=== PATIENT | male | born 1990 | race Caucasian/White ===

== ENCOUNTER 2017-04-06 01:21 | Emergency (ER) | payer SELFPAY ==
[~2017-04-06] VITALS: Ht 177.8 cm; Wt 89.0 kg
[~2017-04-06 01:21] MED LIST: AMOX875T PO; IBUP800T23 PO
[2017-04-06 01:24] VITALS: BP 154/81; PULSE 112; RESP 16; TEMP 99; O2SAT 98
--- NOTE | 2017-04-06 01:42 | PD ---
HPI Chief Complaint: Injury Time Seen by Provider: 01:33 Travel History International Travel<30 days: No Contact w/Intl Traveler<30days: No Traveled to known affect area: No History of Present Illness HPI 26-year-old [id number] black male presents emergency Department with complaints of left shoulder pain after being placed in the arm bar by a friend of his when they were playing around. The patient states that he had felt and heard a pop in his left shoulder. Since then he had severe 10 out of 10 pain. Worse with any type of movement. He has had some relief with holding his arm up against his chest. He denies any numbness, tingling or weakness. No injury to his head, neck or back. Denies prior injury. PFSH Past Medical History Asthma: Yes (CHILDHOOD) Diminished Hearing: No Immunizations Current: Yes Tetanus Vaccination: < 5 Years Past Surgical History Surgical History: No Previous Surgery Social History Alcohol Use: Yes (OCCASIONALLY) Tobacco Use: No Substance Use: Yes (marijuana) Allergies-Medications (Allergen,Severity, Reaction): Coded Allergies: pollen extracts (Unverified Allergy, Mild, 04/06/17) Reported Meds & Prescriptions Reported Meds & Active Scripts Active Ibuprofen 800 Mg Tab 800 Mg PO Q8H PRN Lortab (Hydrocodone-Acetaminophen) 5-325 Mg Tab 1 Tab PO Q8HR PRN Review of Systems General / Constitutional: No: Fever Eyes: No: Visual changes HENT: No: Headaches, Neck Pain Cardiovascular: No: Chest Pain or Discomfort Respiratory: No: Shortness of Breath Gastrointestinal: No: Abdominal Pain Genitourinary: No: Dysuria Musculoskeletal: Positive: Arthralgias, Limited ROM, Pain, No: Weakness Skin: No Rash Neurologic: No: Weakness Psychiatric: No: Depression Endocrine: No: Polydipsia Hematologic/Lymphatic: No: Easy Bruising Physical Exam Narrative GENERAL: This is a well-nourished, well-developed patient, in no apparent distress. SKIN: No rashes, ecchymoses or lesions. Warm and dry. HEAD: Atraumatic. Normocephalic. EYES: PERRL, EOMI, no discharge or injection. No scleral icterus. EARS: Clear NOSE: Nasal turbinates appear normal. THROAT: Mucosa pink and moist. Airway patent. NECK: Trachea midline. supple, moves head freely. LUNGS: Clear to auscultation. CV: Regular in rhythm. ABDOMEN: Soft nontender. EXT: No clubbing cyanosis or edema. Examination of left upper extremity reveals pain in the glenohumeral joint and proximal humerus. No obvious deformity. Global decreased range of motion. No pain in the clavicle, elbow, wrist or hand. Intact median/ulnar/radial nerves. The right upper extremity as well as lower extremities are without localizing bony tenderness or deformity. Neurovascular intact. Data Data Last Documented VS Vital Signs Date Time Temp Pulse Resp B/P (MAP) Pulse Ox O2 Delivery O2 Flow Rate FiO2 04/06/17 01:24 99.0 112 16 154/81 (105) 98 Orders Orders Shoulder, Limited(2vws) (04/06/17 01:36) Ice/Cold Pack (04/06/17 01:36) Ed Discharge Order (04/06/17 02:02) Splint Or Brace Apply/Monitor (04/06/17 02:02) Acetamin-Hydrocod 325-5 Mg ([place] 5-325 (04/06/17 02:15) Ibuprofen (Motrin) (04/06/17 02:15) MDM Medical Decision Making Medical Screen Exam Complete: Yes Emergency Medical Condition: Yes Medical Record Reviewed: Yes Interpretation(s) Left shoulder: Negative for acute fracture or subluxation. Differential Diagnosis MDM: High Differential diagnoses: Fracture, sprain, strain, dislocation, contusion, neurovascular injury Narrative Course X-ray of the left shoulder is negative for acute bony injury. There is no dislocation. The patient's exam is very limited due to his pain. The patient is placed in a sling and given Lortab 5 mg by mouth and Motrin 800 mg by mouth. Ice pack applied. This is left shoulder sprain rule out rotator cuff injury Diagnosis Primary Impression: left shoulder sprain rule out rotator cuff injury Patient Instructions: General Instructions, Narcotic given in the ED Additional Instructions: Rest. Sling. Ice for the next few days. Medications as directed. Follow-up with an orthopedist in the next 3-7 days. Return to the ER for emergencies Med/Other Pt SpecificInfo: Prescription(s) given Scripts Ibuprofen (Ibuprofen) 800 Mg Tab 800 MG PO Q8H Y for Pain/Inflammation, #30 TAB 0 Refills Prov: Cynthia Qureshi MD 04/06/17 Hydrocodone-Acetaminophen (Lortab) 5-325 Mg Tab 1 TAB PO Q8HR Y for PAIN, #12 TAB 0 Refills Prov: Cynthia Qureshi MD 04/06/17 Disposition: 01 DISCHARGE HOME Condition: Zeke Bruner Apr 06, 2017 01:42
[2017-04-06] MEDS ORDERED: IBUP800T23 PO (02:04)
[2017-04-06] MEDS ORDERED: HYDR-3533 PO (02:04)
[2017-04-06] MEDS ORDERED: IBUPROFEN 800 MG TAB PO ONE (02:15)
[2017-04-06] MEDS ORDERED: ACETAMINOPHEN/HYDROcodone 325 MG/5 MG TAB PO ONE (02:15)
--- NOTE | 2017-04-06 02:24 | RADRPT ---
EXAM DATE/TIME: 04/06/2017 01:53 [facility] COMPARISON: No previous studies available for comparison. INDICATIONS : Left shoulder pain. MEDICAL HISTORY : None. SURGICAL HISTORY : None. ENCOUNTER: Initial ACUITY: 1 day PAIN SCORE: 10/10 LOCATION: Left upper extremity FINDINGS: Two view examination of the left shoulder demonstrates no evidence of fracture or dislocation. The g lenohumeral and acromioclavicular joints are maintained. Bony mineralization is normal. CONCLUSION: No acute fracture. Mitchell Kim MD on April 06, 2017 at 2:23 Board Certified Radiologist. This report was verified electronically.
== END 2017-04-06 02:21 | disposition home or self-care (01) ==
LOC: NEPD 01:21
DX: S43.402A Unspecified sprain of left shoulder joint, initial encounter (principal); J45.909 Unspecified asthma, uncomplicated; X50.9XXA Other and unspecified overexertion or strenuous movements or postures, initial encounter
CPT/HCPCS: 73030; 99283